=== PATIENT | female | born 1995 | race African-American/Black ===

== ENCOUNTER 2018-09-15 16:54 | Emergency (ER) | payer OTHER ==
[~2018-09-15] VITALS: Ht 170.2 cm; Wt 77.1 kg
[~2018-09-15 16:54] MED LIST: BIRTH CONTROL; IBUPROFEN 600600 M1 PO; SINGULAIR 10 MG10 M1 PO; VENTOLIN HFA 1818 GM INH
[2018-09-15 17:17] VITALS: BP 125/65
[2018-09-15] MEDS ORDERED: MOBIC7.5 MG PO (17:40)
== END 2018-09-15 18:02 | disposition home or self-care (01) ==
LOC: ER 16:54
DX: S46.912A Strain of unspecified muscle, fascia and tendon at shoulder and upper arm level, left arm, initial encounter (principal); V89.2XXA Person injured in unspecified motor-vehicle accident, traffic, initial encounter; Y93.89 Activity, other specified; Y92.89 Other specified places as the place of occurrence of the external cause; Y99.8 Other external cause status